=== PATIENT | female | born 1970 | race Caucasian/White ===

== ENCOUNTER 2017-09-12 16:42 | Inpatient (IN) | payer MEDICARE, OTHER ==
[2017-09-12] MEDS ORDERED: AMPICILLIN SOD/SULBACTAM SOD 3 GM in D5W MINI-BAG PLUS 100 ML IV ×2 (17:15→18:00)
[2017-09-12] MEDS ORDERED: PERCOCET 5MG/325MG TAB PO (17:15)
[2017-09-12] MEDS ORDERED: MORPHINE 4 MG/ML 1ML VIAL/SYRINGE (J2270) IV (17:15)
[2017-09-12 17:49] LABS: HEMATOCRIT 40.2 % (36.0-47.0); HEMOGLOBIN 13.6 g/dl (12.0-15.5); MEAN CORPUSCULAR HEMOGLOBIN 28.2 pg (27.0-33.0); MEAN CORPUSCULAR HGB CONC 33.8 g/dl (32.0-36.5); MEAN CORPUSCULAR VOLUME 83.4 fl (80.0-96.0); PLATELET COUNT, AUTOMATED 320 10^3/uL (150-450); RED BLOOD COUNT 4.82 10^6/uL (4.00-5.40); RED CELL DISTRIBUTION WIDTH 12.8 % (11.5-14.5)
[2017-09-12 17:50] LABS: ADD MANUAL DIFFER YES; DIFF SLIDE NUMBER 315; POSITIVE MORPH POS FLAG
[2017-09-12 18:07] LABS: ERYTHROCYTE SEDIMENTATION RATE 28 mm/hr (0-20)
[2017-09-12 18:12] LABS: ATYPICAL LYMPH 3 % (0-5); BASOPHILS 3 % (0-4); LYMPHOCYTES 49 % (16-52); MONOCYTES 4 % (0-8); NEUTROPHILS 41 % (35-75)
[2017-09-12 18:13] LABS: PLATELET ESTIMATE NORMAL (NORMAL)
[2017-09-12 18:26] LABS: ANION GAP 8 MEQ/L (8-16); BLOOD UREA NITROGEN 10 MG/DL (7-18); CALCIUM LEVEL 9.3 MG/DL (8.5-10.1); CARBON DIOXIDE LEVEL 26 MEQ/L (21-32); CHLORIDE LEVEL 108 MEQ/L (98-107); CREATININE FOR GFR 0.56 MG/DL (0.55-1.30); GLOMERULAR FILTRATION RATE > 60.0 (>58); GLUCOSE, FASTING 83 MG/DL (70-100); POTASSIUM SERUM 3.6 MEQ/L (3.5-5.1); SODIUM LEVEL 142 MEQ/L (136-145)
[2017-09-12 18:26] LABS: C REACTIVE PROTEIN QUANTITATIV 0.89 MG/DL (0.00-0.30)
[2017-09-12] MEDS: MORPHINE 4 MG/ML 1ML VIAL/SYRINGE (J2270) IV ×3 (18:35→23:38)
[2017-09-12] MEDS: PERCOCET 5MG/325MG TAB PO (19:05)
[2017-09-12] MEDS ORDERED: hydrOXYzine 50 MG TAB PO (19:30)
[2017-09-12] MEDS: hydrOXYzine 50 MG TAB PO (20:48)
[2017-09-12] MEDS: QUEtiapine FUMARATE 100 MG TAB PO (20:48)
[2017-09-12] MEDS: AMITRIPTYLINE 50 MG TAB PO (20:48)
[2017-09-12] MEDS: AMPICILLIN SOD/SULBACTAM SOD 3 GM in D5W MINI-BAG PLUS 100 ML IV (20:48)
[2017-09-13] MEDS ORDERED: diphenhydrAMINE INJ 50MG/ML VIAL (J1200) IV (00:45)
[2017-09-13] MEDS: AMPICILLIN SOD/SULBACTAM SOD 3 GM in D5W MINI-BAG PLUS 100 ML IV ×4 (02:02→20:48)
[2017-09-13] MEDS: PERCOCET 5MG/325MG TAB PO ×5 (02:17→22:00)
[2017-09-13] MEDS: MORPHINE 4 MG/ML 1ML VIAL/SYRINGE (J2270) IV ×2 (08:01→21:11)
[2017-09-13] MEDS: NICOTINE 14 MG/24 HR TRANSDERMAL TD (10:21)
[2017-09-13] MEDS: CHLORHEXIDINE ORAL RINSE 0.12%/15ML 120ML BOTTLE SSP ×2 (14:14→20:49)
[2017-09-13] MEDS ORDERED: LIDOCAINE 1% MDV 20ML VIAL As Ordered (15:31)
[2017-09-13] MEDS: AMITRIPTYLINE 50 MG TAB PO (20:49)
[2017-09-13] MEDS: QUEtiapine FUMARATE 100 MG TAB PO (20:49)
[2017-09-13] MEDS: hydrOXYzine 50 MG TAB PO (20:49)
[2017-09-13] MEDS: SODIUM CHLORIDE 0.9% INJ 10 ML SYR IV ×2 (20:50→21:59)
[2017-09-14] MEDS: PERCOCET 5MG/325MG TAB PO ×4 (04:24→20:14)
[2017-09-14] MEDS: SODIUM CHLORIDE 0.9% INJ 10 ML SYR IV ×3 (06:29→16:17)
[2017-09-14] MEDS: CHLORHEXIDINE ORAL RINSE 0.12%/15ML 120ML BOTTLE SSP ×3 (08:48→20:13)
[2017-09-14] MEDS: NICOTINE 14 MG/24 HR TRANSDERMAL TD (08:48)
[2017-09-14] MEDS: ERTAPENEM SODIUM 1 GM in NS MINI-BAG PLUS 50 ML IV (08:48)
[2017-09-14 09:32] LABS: BASO # 0.1 10^3/uL (0.0-0.2); BASO % 0.7 % (0.0-1.0); EOS # 0.2 10^3/uL (0.0-0.50); EOS % 2.3 % (0.0-3.0); HEMATOCRIT 37.1 % (36.0-47.0); HEMOGLOBIN 12.4 g/dl (12.0-15.5); IMMATURE GRANULOCYTE % 0.4 % (0-3.0); LYMPH # 3.2 10^3/uL (1.5-4.5); LYMPH % 43.5 % (24.0-44.0); MEAN CORPUSCULAR HEMOGLOBIN 28.3 pg (27.0-33.0); MEAN CORPUSCULAR HGB CONC 33.4 g/dl (32.0-36.5); MEAN CORPUSCULAR VOLUME 84.7 fl (80.0-96.0); MONO # 0.5 10^3/uL (0.0-0.8); MONO % 6.5 % (0.0-5.0); NEUTROPHILS # 3.4 10^3/uL (1.8-7.7); NEUTROPHILS % 46.6 % (36.0-66.0); PLATELET COUNT, AUTOMATED 288 10^3/uL (150-450); RED BLOOD COUNT 4.38 10^6/uL (4.00-5.40); WHITE BLOOD COUNT 7.3 10^3/uL (4.0-10.0)
[2017-09-14] MEDS: MORPHINE 4 MG/ML 1ML VIAL/SYRINGE (J2270) IV (16:19)
[2017-09-14] MEDS: hydrOXYzine 50 MG TAB PO (20:15)
[2017-09-14] MEDS: AMITRIPTYLINE 50 MG TAB PO (20:15)
[2017-09-14] MEDS: QUEtiapine FUMARATE 100 MG TAB PO (20:15)
[2017-09-15] MEDS: PERCOCET 5MG/325MG TAB PO ×5 (01:12→20:24)
[2017-09-15] MEDS: SODIUM CHLORIDE 0.9% INJ 10 ML SYR IV ×3 (05:09→17:52)
[2017-09-15] MEDS: DOCUSATE SOD LIQ 100MG/10ML UDC PO ×2 (09:20→20:13)
[2017-09-15] MEDS: ERTAPENEM SODIUM 1 GM in NS MINI-BAG PLUS 50 ML IV (09:21)
[2017-09-15] MEDS: DOCUSATE SODIUM 100 MG CAP PO ×2 (09:21→20:14)
[2017-09-15] MEDS: NICOTINE 14 MG/24 HR TRANSDERMAL TD (09:21)
[2017-09-15] MEDS: CHLORHEXIDINE ORAL RINSE 0.12%/15ML 120ML BOTTLE SSP ×3 (09:40→20:13)
[2017-09-15] MEDS: ALPRAZolam 0.5 MG TAB PO (18:46)
[2017-09-15] MEDS: AMITRIPTYLINE 50 MG TAB PO (20:14)
[2017-09-15] MEDS: QUEtiapine FUMARATE 100 MG TAB PO (20:14)
[2017-09-15] MEDS: hydrOXYzine 50 MG TAB PO (20:14)
[2017-09-16] MEDS: SODIUM CHLORIDE 0.9% INJ 10 ML SYR IV (06:15)
[2017-09-16] MEDS: NICOTINE 14 MG/24 HR TRANSDERMAL TD (09:00)
[2017-09-16] MEDS: CHLORHEXIDINE ORAL RINSE 0.12%/15ML 120ML BOTTLE SSP (09:00)
[2017-09-16] MEDS: ERTAPENEM SODIUM 1 GM in NS MINI-BAG PLUS 50 ML IV (09:00)
== END 2017-09-16 18:05 | disposition home or self-care (01) | DRG 863 ==
LOC: M ED 16:42 → M ED INP 17:00 → M PED 18:23
PROVIDERS: Dentist
PROC: 02HV33Z Insertion of Infusion Device into Superior Vena Cava, Percutaneous Approach (ICD-10-PCS; principal; 2017-09-13)
DX: T81.4XXA Infection following a procedure, initial encounter (principal); M27.2 Inflammatory conditions of jaws; F31.9 Bipolar disorder, unspecified; Z90.710 Acquired absence of both cervix and uterus; Z88.0 Allergy status to penicillin; Z91.030 Bee allergy status; Z88.5 Allergy status to narcotic agent; Z79.899 Other long term (current) drug therapy; Y82.9 Unspecified medical devices associated with adverse incidents

== ENCOUNTER → 2017-09-24 | Outpatient (REF) | payer MEDICARE ==
[2017-09-24 12:25] LABS: BASO # 0.1 10^3/uL (0.0-0.2); EOS # 0.2 10^3/uL (0.0-0.50); EOS % 2.9 % (0.0-3.0); HEMATOCRIT 38.2 % (36.0-47.0); HEMOGLOBIN 12.7 g/dl (12.0-15.5); IMMATURE GRANULOCYTE % 0.3 % (0-3.0); LYMPH # 2.3 10^3/uL (1.5-4.5); LYMPH % 37.4 % (24.0-44.0); MEAN CORPUSCULAR HEMOGLOBIN 28.2 pg (27.0-33.0); MEAN CORPUSCULAR HGB CONC 33.2 g/dl (32.0-36.5); MEAN CORPUSCULAR VOLUME 84.7 fl (80.0-96.0); MONO # 0.7 10^3/uL (0.0-0.8); MONO % 10.7 % (0.0-5.0); NEUTROPHILS % 47.7 % (36.0-66.0); PLATELET COUNT, AUTOMATED 225 10^3/uL (150-450); RED BLOOD COUNT 4.51 10^6/uL (4.00-5.40); RED CELL DISTRIBUTION WIDTH 12.8 % (11.5-14.5); WHITE BLOOD COUNT 6.3 10^3/uL (4.0-10.0)
[2017-09-24 13:03] LABS: C REACTIVE PROTEIN QUANTITATIV 1.31 MG/DL (0.00-0.30)
[2017-09-24 13:36] LABS: ERYTHROCYTE SEDIMENTATION RATE 31 mm/hr (0-20)
== END ==
LOC: M LAB REF 12:15
DX: M86.10 Other acute osteomyelitis, unspecified site (principal)
CPT/HCPCS: 86140

== ENCOUNTER → 2017-10-11 | Outpatient (REF) | payer MEDICARE, OTHER ==
[2017-10-11 11:28] LABS: HEMATOCRIT 45.9 % (36.0-47.0); HEMOGLOBIN 15.2 g/dl (12.0-15.5); MEAN CORPUSCULAR VOLUME 84.2 fl (80.0-96.0); RED BLOOD COUNT 5.45 10^6/uL (4.00-5.40); WHITE BLOOD COUNT 9.5 10^3/uL (4.0-10.0)
[2017-10-11 11:29] LABS: BASO # 0.1 10^3/uL (0.0-0.2); BASO % 1.1 % (0.0-1.0); EOS # 0.3 10^3/uL (0.0-0.50); EOS % 2.9 % (0.0-3.0); IMMATURE GRANULOCYTE % 0.7 % (0-3.0); LYMPH # 2.9 10^3/uL (1.5-4.5); LYMPH % 30.7 % (24.0-44.0); MEAN CORPUSCULAR HEMOGLOBIN 27.9 pg (27.0-33.0); MEAN CORPUSCULAR HGB CONC 33.1 g/dl (32.0-36.5); MONO # 0.4 10^3/uL (0.0-0.8); MONO % 4.2 % (0.0-5.0); NEUTROPHILS # 5.7 10^3/uL (1.8-7.7); NEUTROPHILS % 60.4 % (36.0-66.0); PLATELET COUNT, AUTOMATED 302 10^3/uL (150-450); RED CELL DISTRIBUTION WIDTH 12.8 % (11.5-14.5)
[2017-10-11 11:54] LABS: ERYTHROCYTE SEDIMENTATION RATE 4 mm/hr (0-20)
[2017-10-11 12:01] LABS: C REACTIVE PROTEIN QUANTITATIV 0.74 MG/DL (0.00-0.30)
== END ==
LOC: M SFHCPLAZ 10:36
DX: M27.2 Inflammatory conditions of jaws (principal)
CPT/HCPCS: 86140